=== PATIENT | male | born 1985 | race Caucasian/White ===

== ENCOUNTER 2016-12-17 08:04 | Day surgery (SDC) | payer OTHER ==
[~2016-12-17] VITALS: Ht 190.5 cm; Wt 91.0 kg
[~2016-12-17 08:04] MED LIST: 0.9% Sodium Chloride 1,000 ML IV SCH; No current meds; Sodium Chloride LOK Flush 10 mL Syringe IV PRN; fentaNYL-PF 50 mCg/mL 2 mL Inj IVPUSH PRN
[2016-12-17 08:23] VITALS: BP 140/96; PULSE 54; RESP 14; O2SAT 100
[2016-12-17 09:15] VITALS: BP 114/56; PULSE 59; RESP 16; O2SAT 98
--- NOTE | 2016-12-17 09:15 | PCM.ENDEGD ---
EGD Date of Service: Dec 17, 2016 Physician Rober Chiu MD Pre Procedure Diagnosis: Dysphagia Post Procedure Dx & Findings: Gastritis esophagitis Procedure Esophagogastroduodenoscopy PROCEDURE IN DETAIL: After proper sedation, Olympus video endoscope was inserted into patient's mouth and esophagus was successfully intubated. Scope introduced esophagus. Esophagus showed normal shiny whitish mucosa consistent with squamous cell component until we reach 40 cm. Starting 40 cm, inflammation and edema scarring noted. Z line was inflamed and edematous at 48 cm from the incisors. Grade D. Biopsies are obtained at the GE junction and the proximal esophagus or the inflammation starts. Scope further advanced to the stomach. The antrum showed redness edema and a 5 mm ulcer. Patient had gastric ulcer and gastritis. Biopsies are obtained including the ulcer and the surrounding inflammation. These were placed in the same bottle. Cardia fundus body antrum pylorus were all visualized. Retroflexion was done. Stomach was easily inflated and deflatable using air. Scope further events to the distal duodenum. Duodenum revealed normal villous structures with normal appearing folds without any mass ulcer erosion. Impression Severe esophagitis. Gastritis with gastric ulcer Recommendation Avoid all NSAIDs Prilosec 40 twice a day for a month and Prilosec 40 once a day. Follow-up with GI with Dr. Hernandez Presedation Assessment Risks and Benefits Informed consent was obtained from the patient after all risks and benefits including but not limited to drug reaction, infection, pain, bleeding, perforation, as well as alternatives were discussed. Patient monitoring Continuous pulse oximetry, cardiac monitoring, blood pressure monitoring, IV access, and oxygen at 2L per nasal cannula. Periprocedural Fentanyl: Fentanyl 150mcg Incrementally Midazolam: Midazolam 5mg Incrementally Complications There were no periprocedural complications identified. Post Procedure Plan Post Procedure Recommendations 1. Restrict activities today. 2. Resume normal activities in the morning. 3. Resume medications. 4. GERD behavioral modification: - Avoid fatty, acidic, spicy, large meals - Do not lie down after meals - Do not eat or drink anything for at least 2 1/2 hours before going to bed at night - Discontinue tobacco and alcohol - Decrease or avoid caffeine - Avoid chocolate and mints - Decrease weight - Avoid aspirin and non steroidal anti-inflammatory agents (NSAID) such as Aleve, Advil, Mobic, Naproxen, Ibuprofen, etc 5. Add proton pump inhibitor. Take 30 minutes before 1st meal of the day. 6. Patient informed of normal post procedure side effects as bloating, drowsiness, blood streaking in the stool 7. If gastric biopsy reveal H.pylori, continue with appropriate treatment 8. If small bowel biopsy reveals celiac, continue with appropriate treatment 9. Please don't hesitate to call me with any questions Rober Chiu MD Dec 17, 2016 09:15
[2016-12-17 09:25] VITALS: BP 122/76; PULSE 72; RESP 16; O2SAT 98
[2016-12-17 09:35] VITALS: BP 139/80; PULSE 58; RESP 16; O2SAT 99
--- NOTE | 2016-12-18 11:11 | PATH ---
SURGICAL PATHOLOGY Attending Physician:Rober Chiu M.D. CASE STATUS: Signed Out PATIENT NAME: JAVIER EL PID: [id number] : 1985 DATE COLLECTED:12/17/2016 16:29 SPECIMEN: 1: Gastric, Biopsy 2: Esophagus, Biopsy CLINICAL HISTORY: 1). GASTRIC BIOPSY 2). ESOPHAGEAL BIOPSY FINAL DIAGNOSIS: 1.GASTRIC BIOPSY: MILD CHRONIC GASTRITIS INVOLVING ANTRAL MUCOSA AND FRAGMENT OF FUNDIC MUCOSA WITHOUT SIGNIFICANT INFLAMMATION. Negative for evidence of Helicobacter. Negative for intestinal metaplasia. Negative for dysplasia and malignancy. 2.ESOPHAGEAL BIOPSY: SQUAMOUS EPITHELIUM AND GASTRIC CARDIA-TYPE MUCOSA NEGATIVE FOR SPECIALIZED METAPLASIA OF DALTON' S-TYPE ESOPHAGUS. Negative for dysplasia and malignancy. Numerous eosinophils present within the squamous epithelium numbering up to 70 per high-powered field (see comment). ICD10 code K29.70 NOTE: The large number of eosinophils present within the squamous epithelium in part 2 could be due to chronic reflux. The excessive number, however, raises a question of eosinophilic esophagitis. Clinical correlation is suggested. GROSS DESCRIPTION: The specimen is received in two formalin filled containers labeled with the patient's name. 1). The specimen is sublabeled "gastric" and consists of 2 portions of tissue which aggregate to 0.3 x 0.3 x 0.2 CM. The specimen is entirely submitted in cassette 1A. 2). The specimen is sublabeled "esophageal" and consists of 2 portions of tissue which aggregate to 0.3 x 0.3 x 0.3 CM. The specimen is entirely submitted in cassette 2A. 12/17/2016 [facility] MICRO DESCRIPTION: See diagnosis. ICD-9 CODES: CPT CODES: 1: 69361 2: 24699 Electronically Signed Out Marcelo Mack MD [facility] Pathology [facility] [address], [place] [address] Technical component performed at [facility], [address] [place] [address] [address], [place], [address]
== END 2016-12-17 23:59 | disposition home or self-care (01) ==
LOC: END 08:04
PROVIDERS: ATTEND Internal Medicine
DX: K29.50 Unspecified chronic gastritis without bleeding (principal); K20.9 Esophagitis, unspecified; K25.9 Gastric ulcer, unspecified as acute or chronic, without hemorrhage or perforation; R13.10 Dysphagia, unspecified
CPT/HCPCS: 43239; 88305; G0500; J2250; J3010; J7030